=== PATIENT | female | born 1995 | race African-American/Black ===

== ENCOUNTER 2021-04-09 17:04 | Inpatient (IN) | payer OTHER ==
[~2021-04-09] VITALS: Ht 177.8 cm; Wt 141.1 kg
[2021-04-09] MEDS ORDERED: ONDANSETRON HCL 4MG/2ML INJ IV ONE (18:15)
[2021-04-09] MEDS ORDERED: MORPHINE SULFATE 4 MG/ML CPJ (NOT FOR IM USE) IV ONE ×2 (18:15→20:15)
[2021-04-09] MEDS ORDERED: SODIUM CHLORIDE 0.9% 1,000 ML IV ONE ×2 (18:15→20:00)
[2021-04-09 19:10] LABS: BASOPHILS % 0.1 % (0.0-2.0); EOSINOPHILS % 0.5 % (0.0-5.0); HEMATOCRIT. 32.1 % (36.0-48.0); LYMPHOCYTES % 14.7 % (20.0-50.0); MEAN CORPUSCULAR HEMOGLOBIN 27.3 pg (28.0-32.0); MONOCYTES % 5.8 % (2.0-8.0); NEUTROPHILS % 78.9 % (40.0-76.0); RED BLOOD CELL COUNT 4.01 mill/uL (4.2-5.4); RED CELL DISTRIBUTION WIDTH 15.6 % (11.6-14.6)
[2021-04-09 19:16] LABS: CHLORIDE 109 mEq/L (98-107)
[2021-04-09 19:36] LABS: PARTIAL THROMBOPLASTIN TIME 25.8 sec (23.4-31.0); PROTHROMBIN TIME 10.7 sec (9.6-11.0)
[2021-04-09 19:40] LABS: B-HCG QUANTITATIVE 51980 mIU/mL (<3)
[2021-04-09 19:48] LABS: MEAN PLATELET VOLUME 8.3 fl (7.4-10.4); PLATELET 280 x1000/uL (130-400)
[2021-04-09 22:16] LABS: HEMATOCRIT 23.8 % (36.0-48.0); HEMOGLOBIN 8.3 g/dL (12.0-16.0); MEAN CORPUSCULAR HEMOGLOBIN 27.6 pg (28.0-32.0); MEAN CORPUSCULAR VOLUME 79.6 fL (81.0-99.0); PLATELET 116 x1000/uL (130-400); RED BLOOD CELL COUNT 2.99 mill/uL (4.2-5.4); RED CELL DISTRIBUTION WIDTH 15.4 % (11.6-14.6)
[2021-04-09] MEDS ORDERED: PROPOFOL 200MG/20ML VIAL IV ONE ×2 (22:37→23:26)
[2021-04-09] MEDS ORDERED: MIDAZOLAM HCL 2 MG/2 ML VIAL ONE (22:38)
[2021-04-09] MEDS ORDERED: SODIUM CHLORIDE 0.9% 10ML VIAL ONE (22:41)
[2021-04-09] MEDS ORDERED: CEFAZOLIN SODIUM 1000MG/VIAL ONE (22:41)
[2021-04-09] MEDS ORDERED: ACETAMINOPHEN 500MG TABLET ONE (23:02)
[2021-04-09] MEDS ORDERED: PHENYLEPHRINE HCL 10 MG/ML 1ML (IV VIAL) IV ONE (23:14)
[2021-04-09] MEDS ORDERED: ALBUMIN HUMAN 12.5G/250ML (5%) IV ONE (23:30)
[2021-04-09] MEDS ORDERED: ALBUMIN HUMAN 12.5G/250ML (5%) IV NR ×2 (23:30→23:45)
[2021-04-09] MEDS ORDERED: KETAMINE HCL 50 MG/ML 10ML ONE (23:34)
[2021-04-09] MEDS ORDERED: ONDANSETRON HCL 4MG/2ML INJ ONE (23:40)
[2021-04-09] MEDS ORDERED: METHYLERGONOVINE MALEATE 0.2 MG/ML ONE (23:40)
[2021-04-09] MEDS ORDERED: IBUPROFEN 800MG TABLET PO PRN (23:45)
[2021-04-09] MEDS ORDERED: ACETAMINOPHEN WITH CODEINE 300/30MG TABLET PO PRN (23:45)
[2021-04-09] MEDS ORDERED: IBUPROFEN 400MG TABLET PO PRN (23:45)
[2021-04-09] MEDS ORDERED: METHYLERGONOVINE MALEATE 0.2 MG/ML IM ONE (23:45)
[2021-04-10 01:02] LABS: HEMOGLOBIN 6.2 g/dL (12.0-16.0)
[2021-04-10 01:03] LABS: HEMATOCRIT 18.3 % (36.0-48.0)
[2021-04-10 05:09] VITALS: BP 118/64
[2021-04-10] MEDS ORDERED: FOLI-43 PO (05:14)
[2021-04-10] MEDS ORDERED: IBUPROFEN 400MG TABLET PO PRN (05:15)
[2021-04-10 05:17] VITALS: BP 118/64
[2021-04-10] MEDS ORDERED: PNV1TABL76 PO (05:45)
[2021-04-10] MEDS ORDERED: DEXT 5%/LR + PITOCIN 20UNITS/L 1,000 ML IV SCH (06:00)
[2021-04-10 06:25] LABS: BASOPHILS % 0.1 % (0.0-2.0); EOSINOPHILS % 0.2 % (0.0-5.0); HEMATOCRIT. 22.8 % (36.0-48.0); HEMOGLOBIN. 7.9 g/dL (12.0-16.0); LYMPHOCYTES % 20.9 % (20.0-50.0); MEAN CORPUSCULAR HEMOGLOBIN 28.3 pg (28.0-32.0); MEAN CORPUSCULAR VOLUME 81.7 fL (81.0-99.0); MEAN PLATELET VOLUME 8.2 fl (7.4-10.4); MONOCYTES % 4.5 % (2.0-8.0); NEUTROPHILS % 74.3 % (40.0-76.0); PLATELET 212 x1000/uL (130-400); RED BLOOD CELL COUNT 2.79 mill/uL (4.2-5.4); RED CELL DISTRIBUTION WIDTH 15.5 % (11.6-14.6)
[2021-04-10] MEDS ORDERED: FERROUS SULFATE 325MG TABLET PO SCH (07:40)
[2021-04-10] MEDS ORDERED: IBUP-2028 PO (07:44)
[2021-04-10] MEDS ORDERED: FERR325T23 PO (07:44)
[2021-04-10] MEDS ORDERED: NORE-81 MT (07:44)
[2021-04-10 09:00] VITALS: BP 106/45
[2021-04-10] MEDS ORDERED: PRENATAL VIT/FE FUMARATE/FA TABLET PO SCH (09:00)
[2021-04-10] MEDS ORDERED: METHYLERGONOVINE MALEATE 0.2MG TABLET PO SCH (09:00)
[2021-04-10 11:27] VITALS: BP 106/45
== END 2021-04-10 12:25 | disposition home or self-care (01) | DRG 770 ==
LOC: ER 17:04 → 8WST 20:28 → ENRESERV 22:28 → CANBEDREQ 04-10 04:06
PROVIDERS: ADMIT Specialist; ATTEND Specialist
PROC: 10D17ZZ Extraction of Products of Conception, Retained, Via Natural or Artificial Opening (ICD-10-PCS; principal; 2021-04-09)
PROC: 30233N1 Transfusion of Nonautologous Red Blood Cells into Peripheral Vein, Percutaneous Approach (ICD-10-PCS; 2021-04-10)
DX: O03.4 Incomplete spontaneous abortion without complication (principal); O03.33 Metabolic disorder following incomplete spontaneous abortion; E87.6 Hypokalemia; O99.011 Anemia complicating pregnancy, first trimester; D64.9 Anemia, unspecified; Z20.822 Contact with and (suspected) exposure to COVID-19
CPT/HCPCS: 36415; 76801; 80053; 84702; 85014; 85018; 85025; 85027; 86850; 86900; 86920; 87426; 88305; 99291; J0690; J2210; J2250; J2270; J2370; J2405; J2590; J2704; J3490; J7030; P9016; P9041